=== PATIENT | female | born 1975 | race Caucasian/White ===

== ENCOUNTER 2016-11-25 17:06 | Emergency (ER) | payer MEDICARE, OTHER ==
[2016-11-25] MEDS ORDERED: FAMOTIDINE 20 MG/2 ML VIAL IV STA (17:30)
[2016-11-25] MEDS ORDERED: methylPREDNISolone SOD SUCCI 125 MG/2 ML VIAL IM ONE (17:30)
[2016-11-25] MEDS ORDERED: diphenhydrAMINE 50 MG/ML 1 ML VIAL IVP STA (17:30)
--- NOTE | 2016-11-25 17:40 | ED ---
Allergic Reaction HPI - General Chief complaint: Allergic Reaction Stated complaint: allergic reaction Time Seen by Provider: 11/25/16 17:17 Source: patient, RN notes reviewed Mode of arrival: ambulatory Limitations: no limitations - History of Present Illness Initial Comments: 41-year-old female presented emergency department to make ALLERGIC reaction. Patient states she was eating a local restaurant which she ate some ribs and shrimp. Patient states that few minutes after eating she started feeling funny became very red in her face, upper chest region. She states she's having difficult breathing, swelling to time. She states she is very itchy, her eyes are itchy. Patient states that she stopped at a local gas station did take some Benadryl prior come emergency department. Patient states she has ALLERGIES to penicillin but states that she's never had any issues with food ALLERGIES. Patient denies any medications, soaps also detergents. Patient states that she did not take any also for this reaction this time. - Related Data Home Medications Medication Instructions Recorded Confirmed traZODone HCL 150 mg PO HS PRN 11/25/16 11/25/16 Previous Rx's Medication Instructions Recorded diphenhydrAMINE [Benadryl] 50 mg PO QID PRN #20 capsule 11/25/16 predniSONE 50 mg PO DAILY #3 tab 11/25/16 Allergies Allergy/AdvReac Type Severity Reaction Status Date / Time Penicillins Allergy Rash/Hives Verified 11/25/16 17:51 Review of Systems ROS Statement: Those systems with pertinent positive or pertinent negative responses have been documented in the HPI. ROS Other: All systems not noted in ROS Statement are negative. Past Medical History Additional Past Medical History / Comment(s): back pain History of Any Multi-Drug Resistant Organisms: None Reported Past Surgical History: Back Surgery, Cholecystectomy Additional Past Surgical History / Comment(s): rt ovary removed Past Psychological History: No Psychological Hx Reported Smoking Status: Never smoker Past Alcohol Use History: None Reported Past Drug Use History: None Reported General Exam Limitations: no limitations General appearance: alert, in no apparent distress Head exam: Present: atraumatic, normocephalic, normal inspection Eye exam: Present: PERRL, EOMI, conjunctival injection. Absent: normal appearance, scleral icterus, periorbital swelling ENT exam: Present: normal exam, normal oropharynx, mucous membranes moist, TM's normal bilaterally, normal external ear exam Neck exam: Present: normal inspection, full ROM. Absent: tenderness, meningismus, lymphadenopathy Respiratory exam: Present: normal lung sounds bilaterally. Absent: respiratory distress, wheezes, rales, rhonchi, stridor Cardiovascular Exam: Present: normal rhythm, tachycardia, normal heart sounds. Absent: systolic murmur, diastolic murmur, rubs, gallop, clicks Skin exam: Present: warm, dry, intact, normal color, rash (Erythema noted of the face, upper chest region) Course Vital Signs 11/25/16 11/25/16 17:23 17:35 Temperature 97.7 F Pulse Rate 120 H 107 H Respiratory 20 18 Rate Blood Pressure 157/98 140/76 O2 Sat by Pulse 99 99 Oximetry - Reevaluation(s) Reevaluation #1: 11/25/16 18:01 Patient was reevaluated his time. Patient states her symptoms have almost all resolved other than some blotchy skin. Patient states she has no difficulty breathing or difficulty swallowing. States itching is resolved and her eyes are slightly itchy at this time. Patient is requesting to be discharged. We did discuss that she is to stay on Benadryl every 6 hours for minimal 24 hours. Patient was started on steroids for 3 days. Return parameters were discussed. Medical Decision Making - Medical Decision Making 41-year-old female presented emergency from for ALLERGIC reaction. Patient was given Benadryl, Solu-Medrol Pepcid. Patient's symptoms have resolved. Patient be discharged on Benadryl and prednisone. Return parameters were discussed. Disposition Clinical Impression: Allergic reaction Disposition: HOME SELF-CARE Condition: Stable Instructions: Food Allergy (ED), General Allergic Reaction (ED) Additional Instructions: Please return to the Emergency Department if symptoms worsen or any other concerns. Prescriptions: diphenhydrAMINE [Benadryl] 50 mg PO QID PRN #20 capsule PRN Reason: Allergic Reaction predniSONE 50 mg PO DAILY #3 tab Time of Disposition: 18:04
[2016-11-25] MEDS ORDERED: KETOTIFEN 0.025% OPHTH DROPS 5 ML BTL BOTH EYES STA (18:00)
[2016-11-25 18:16] VITALS: BP 130/87; PULSE 84; RESP 20; TEMP 99.4
== END 2016-11-25 18:19 | disposition home or self-care (01) ==
LOC: EC 17:06
DX: T78.1XXA Other adverse food reactions, not elsewhere classified, initial encounter (principal); Z88.0 Allergy status to penicillin; Z88.2 Allergy status to sulfonamides
CPT/HCPCS: 99282; 96372; 96374; 96375; J1200; J2930

== ENCOUNTER 2016-11-26 18:33 | Inpatient (IN) | payer MEDICARE, OTHER ==
[2016-11-26] MEDS ORDERED: FAMOTIDINE 20 MG/2 ML VIAL IV STA ×2 (18:46→19:28)
[2016-11-26] MEDS ORDERED: EPINEPHrine 1 MG/ML 1 ML AMP IM STA (18:46)
[2016-11-26] MEDS ORDERED: methylPREDNISolone SOD SUCCI 125 MG/2 ML VIAL IV STA ×2 (18:46→21:41)
[2016-11-26] MEDS ORDERED: diphenhydrAMINE 50 MG/ML 1 ML VIAL IVP STA ×3 (18:46→20:49)
--- NOTE | 2016-11-26 19:16 | ED ---
Allergic Reaction HPI - General Source: patient, RN notes reviewed Mode of arrival: ambulatory Limitations: no limitations <Vikram Murphy - Last Filed: 11/26/16 19:14> <Silverio Bruno - Last Filed: 11/26/16 21:52> - General Chief complaint: Allergic Reaction Stated complaint: allergic reaction Time Seen by Provider: 11/26/16 18:41 - History of Present Illness Initial Comments: 41-year-old female presents emergency Department chief complaint ALLERGIC reaction. Patient seen here yesterday for ALLERGIC reaction. She states it started again today after eating dinner. She states that she ate something different had different drink than usual. Patient states that she merely started feeling flushed her face, difficulty breathing difficult the swelling. States she is itchy all over. Patient states she has not been taking the Benadryl every 6 hours as directed. Patient states she knocked steroids either. She states she woke up today and no symptoms associated that she was fine. Patient has known ALLERGY penicillin but states that she has no known food ALLERGIES. (Vikram Murphy) - Related Data Home Medications Medication Instructions Recorded Confirmed traZODone HCL 150 mg PO HS PRN 11/25/16 11/26/16 Previous Rx's Medication Instructions Recorded diphenhydrAMINE [Benadryl] 50 mg PO QID PRN #20 capsule 11/25/16 predniSONE 50 mg PO DAILY #3 tab 11/25/16 Allergies Allergy/AdvReac Type Severity Reaction Status Date / Time Penicillins Allergy Rash/Hives Verified 11/26/16 18:58 Review of Systems ROS Other: All systems not noted in ROS Statement are negative. <Vikram Murphy - Last Filed: 11/26/16 19:14> ROS Other: All systems not noted in ROS Statement are negative. <Silverio Bruno - Last Filed: 11/26/16 21:52> ROS Statement: Those systems with pertinent positive or pertinent negative responses have been documented in the HPI. Past Medical History Additional Past Medical History / Comment(s): back pain History of Any Multi-Drug Resistant Organisms: None Reported Past Surgical History: Back Surgery, Cholecystectomy Additional Past Surgical History / Comment(s): rt ovary removed Past Psychological History: No Psychological Hx Reported Smoking Status: Never smoker Past Alcohol Use History: None Reported Past Drug Use History: None Reported <Vikram Murphy Corby - Last Filed: 11/26/16 19:14> General Exam Limitations: no limitations General appearance: alert, in no apparent distress Head exam: Present: atraumatic, normocephalic, normal inspection Eye exam: Present: normal appearance, PERRL, EOMI. Absent: scleral icterus, conjunctival injection, periorbital swelling ENT exam: Present: normal exam, normal oropharynx, mucous membranes moist, TM's normal bilaterally, normal external ear exam Neck exam: Present: normal inspection, full ROM. Absent: tenderness, meningismus, lymphadenopathy Respiratory exam: Present: normal lung sounds bilaterally. Absent: respiratory distress, wheezes, rales, rhonchi, stridor Cardiovascular Exam: Present: normal rhythm, tachycardia, normal heart sounds. Absent: systolic murmur, diastolic murmur, rubs, gallop, clicks Skin exam: Present: rash (Erythema noted to the face, upper chest and neck region) <Vikram Murphy Corby - Last Filed: 11/26/16 19:14> General appearance: alert, in no apparent distress Head exam: Present: atraumatic, normocephalic, normal inspection Eye exam: Present: normal appearance, PERRL, EOMI. Absent: scleral icterus, conjunctival injection, periorbital swelling ENT exam: Present: normal exam, mucous membranes moist Neck exam: Present: normal inspection. Absent: tenderness, meningismus, lymphadenopathy Respiratory exam: Present: normal lung sounds bilaterally. Absent: respiratory distress, wheezes, rales, rhonchi, stridor Cardiovascular Exam: Present: regular rate, normal rhythm, normal heart sounds. Absent: systolic murmur, diastolic murmur, rubs, gallop, clicks GI/Abdominal exam: Present: soft, normal bowel sounds. Absent: distended, tenderness, guarding, rebound, rigid Extremities exam: Present: normal inspection, full ROM, normal capillary refill. Absent: tenderness, pedal edema, joint swelling, calf tenderness Back exam: Present: normal inspection Neurological exam: Present: alert, oriented X3, CN II-XII intact Psychiatric exam: Present: normal affect, normal mood Skin exam: Present: warm, dry, intact, normal color. Absent: rash <Silverio Bruno B - Last Filed: 11/26/16 21:52> Course <Vikram Murphy - Last Filed: 11/26/16 19:14> <Silverio Bruno - Last Filed: 11/26/16 21:52> Vital Signs 11/26/16 11/26/16 11/26/16 18:37 19:08 20:37 Temperature 97.8 F Pulse Rate 117 H 105 H Respiratory 22 20 18 Rate Blood Pressure 153/87 120/65 O2 Sat by Pulse 100 96 Oximetry - Reevaluation(s) Reevaluation #1: 11/26/16 20:45 patient at this point is showing mild improvement (Silverio Bruno) Reevaluation #2: 11/26/16 21:51 Patient continued to feel worse as far as diffuse itching and rash, (Silverio Bruno) Medical Decision Making <Vikram Murphy - Last Filed: 11/26/16 19:14> - Lab Data Result diagrams: 11/26/16 20:00 11/26/16 20:00 <Silverio Bruno - Last Filed: 11/26/16 21:52> - Medical Decision Making 41 female here for evaluation regarding possible return of ALLERGIC reaction, mild alcohol intoxication with mild alcoholic ketoacidosis, patient given adequate IV fluid here in the emergency room, is able to increase fluid intake. Patient's potassium is low which is replaced and patient is having difficulty with itching, still feeling not well, not tolerating oral intake. Patient be admitted for monitoring of what liquids and fluids. Treatment of pruritus and crack or correction of fluid dehydration status and hypokalemia (Silverio Bruno) - Lab Data Lab Results 11/26/16 11/26/16 Range/Units 20:00 20:00 WBC 18.5 H (3.8-10.6) k/uL RBC 4.24 (3.80-5.40) m/uL Hgb 14.4 (11.4-16.0) gm/dL Hct 41.7 (34.0-46.0) % MCV 98.2 (80.0-100.0) fL MCH 34.0 (25.0-35.0) pg MCHC 34.7 (31.0-37.0) g/dL RDW 12.8 (11.5-15.5) % Plt Count 283 (150-450) k/uL Neutrophils % (Manual) 69.0 % Band Neutrophils % 1.0 % Lymphocytes % (Manual) 22.0 % Monocytes % (Manual) 7.0 % Eosinophils % (Manual) 1.0 % Neutrophils # (Manual) 13.0 H (1.3-7.7) k/uL Lymphocytes # (Manual) 4.1 (1.0-4.8) k/uL Monocytes # (Manual) 1.3 H (0-1.0) k/uL Eosinophils # (Manual) 0.2 (0-0.7) k/uL Nucleated RBCs 0 (0-0) /100 WBC Manual Slide Review Performed Reactive Lymphocytes Present RBC Morphology Normal Sodium 146 H (137-145) mmol/L Potassium 2.7 L* (3.5-5.1) mmol/L Chloride 111 H (98-107) mmol/L Carbon Dioxide 17 L (22-30) mmol/L Anion Gap 18 mmol/L BUN 15 (7-17) mg/dL Creatinine 0.85 (0.52-1.04) mg/dL Est GFR (MDRD) Af Amer >60 (>60 ml/min/1.73 sqM) Est GFR (MDRD) Non-Af >60 (>60 ml/min/1.73 sqM) Glucose 130 H (74-99) mg/dL Calcium 9.4 (8.4-10.2) mg/dL Magnesium 1.9 (1.6-2.3) mg/dL Total Bilirubin 0.6 (0.2-1.3) mg/dL AST 21 (14-36) U/L ALT 46 (9-52) U/L Alkaline Phosphatase 91 (38-126) U/L Total Protein 7.3 (6.3-8.2) g/dL Albumin 4.3 (3.5-5.0) g/dL TSH 1.220 (0.465-4.680) mIU/L Serum Alcohol 51 mg/dL Disposition <Vikram Murphy - Last Filed: 11/26/16 19:14> <Silverio Bruno - Last Filed: 11/26/16 21:52> Clinical Impression: Allergic reaction, Alcoholic ketoacidosis, Hypokalemia, Severe pruritus Disposition: ADMITTED IP TO THIS HOSP Condition: Good Instructions: Hypokalemia (ED) Referrals: Nonstaff,Physician [Primary Care Provider] - 1-2 days
[2016-11-26] MEDS ORDERED: SODIUM CHLORIDE 0.9% 1,000 ML IV ONE ×2 (19:25→21:44)
[2016-11-26] MEDS ORDERED: LORazepam 2 MG/ML SYRINGE IV STA ×4 (19:28→21:41)
[2016-11-26] MEDS ORDERED: hydrOXYzine HCL 25 MG TAB PO STA (19:28)
[2016-11-26] MEDS ORDERED: SODIUM CHLORIDE 0.9% 1,000 ML IV STA ×2 (20:03→20:49)
[2016-11-26] MEDS ORDERED: KETOTIFEN 0.025% OPHTH DROPS 5 ML BTL BOTH EYES STA (20:07)
[2016-11-26 20:20] LABS: ALT 46 U/L (9-52); AST 21 U/L (14-36); Alcohol 51 mg/dL; Alkaline Phosphatase 91 U/L (38-126); Anion Gap 18 mmol/L; Blood Urea Nitrogen 15 mg/dL (7-17); CH 32.9; CHCM 33.7; Calcium 9.4 mg/dL (8.4-10.2); Carbon Dioxide 17 mmol/L (22-30); Chloride 111 mmol/L (98-107); Glucose 130 mg/dL (74-99); HCT 41.7 % (34.0-46.0); HGB 14.4 gm/dL (11.4-16.0); MCHC 34.7 g/dL (31.0-37.0); MCV 98.2 fL (80.0-100.0); Magnesium 1.9 mg/dL (1.6-2.3); Mean Platelet Volume 7.1; Non-African American GFR(MDRD) >60 (>60 ml/min/1.73 sqM); RBC 4.24 m/uL (3.80-5.40); RDW 12.8 % (11.5-15.5); Sodium 146 mmol/L (137-145); Total Bilirubin 0.6 mg/dL (0.2-1.3); Total Protein 7.3 g/dL (6.3-8.2); WBC 18.5 k/uL (3.8-10.6); WBC (Perox) 18.25
[2016-11-26 20:21] LABS: Potassium 2.7 mmol/L (3.5-5.1)
[2016-11-26] MEDS ORDERED: POTASSIUM CHLORIDE ER 20 MEQ TAB.ER PO STA (20:21)
[2016-11-26] MEDS ORDERED: ONDANSETRON 4 MG/2 ML VIAL IVP STA (20:25)
[2016-11-26 20:58] LABS: Add Differential Manual Differential
[2016-11-26 21:00] LABS: Nucleated Red Blood Cells 0 /100 WBC (0-0); Total Cells Counted 100
[2016-11-26 21:01] LABS: Manual Review Performed; Reactive Lymphocytes Present
[2016-11-26 21:02] LABS: RBC Morphology Normal
[2016-11-26] MEDS ORDERED: NALOXONE 0.4 MG/ML 10 ML VIAL IVP STA (21:09)
[2016-11-26] MEDS ORDERED: MORPHINE SULFATE 4 MG/ML SYRINGE IVP STA (21:41)
[2016-11-26] MEDS ORDERED: MORPHINE SULFATE 4 MG/ML SYRINGE IVP PRN (21:41)
[2016-11-26] MEDS ORDERED: LORazepam 2 MG/ML SYRINGE IV PRN ×3 (21:43)
[2016-11-26] MEDS ORDERED: ONDANSETRON 4 MG/2 ML VIAL IVP PRN (21:45)
[2016-11-26] MEDS ORDERED: diphenhydrAMINE 50 MG/ML 1 ML VIAL IVP PRN (21:46)
[2016-11-26] MEDS ORDERED: HYDROmorphone 2 MG/ML 1 ML SYRINGE IVP STA (22:23)
[2016-11-26 23:10] VITALS: RESP 16
[2016-11-26] MEDS: LORazepam 2 MG/ML SYRINGE IV PRN (23:18)
[2016-11-27] MEDS ORDERED: HALOPERIDOL LACTATE 5 MG/ML 1 ML VIAL IM PRN (01:31)
[2016-11-27] MEDS: cloNIDine HCL 0.1 MG TAB PO SCH ×4 (02:12→21:46)
[2016-11-27 02:32] LABS: Appearance,Urine Clear (Clear); Bilirubin,Urine Negative (Negative); Glucose,Urine (UA) Negative (Negative); Ketones,Urine Negative (Negative); Leukocyte Esterase,Urine Negative (Negative); Nitrite,Urine Negative (Negative); PH, Urine 5.5 (5.0-8.0); Protein,Urine Negative (Negative); Specific Gravity,Urine 1.002 (1.001-1.035); UA Billing (MACRO vs. MICRO) CHEM; Urobilinogen,Urine <2.0 mg/dL (<2.0)
[2016-11-27 05:10] LABS: Hepatitis B Surface Ag Index 0.09
[2016-11-27 05:15] LABS: Hepatitis B Core IgM Index 0.09
[2016-11-27] MEDS: methylPREDNISolone SOD SUCCI 125 MG/2 ML VIAL IV SCH ×4 (05:25→18:13)
[2016-11-27 05:39] LABS: Hepatitis C Virus IgG Ab Reactive (Negative)
[2016-11-27] MEDS: FAMOTIDINE 20 MG/2 ML VIAL IV SCH ×2 (09:19→21:36)
[2016-11-27] MEDS: THIAMINE 100 MG/ML 2 ML VIAL IVPB SCH (09:19)
[2016-11-27] MEDS: TRIAMCINOLONE ACET 0.5% CREAM 15 GM TUBE TOPICAL SCH ×2 (11:11→21:37)
[2016-11-27] MEDS ORDERED: diphenhydrAMINE 50 MG CAP PO PRN (11:37)
[2016-11-27 15:51] VITALS: BMI 50.3
--- NOTE | 2016-11-27 18:19 | HP ---
DATE OF ADMISSION: 11/26/2016 CHIEF COMPLAINT: Agitation with acute psychosis and possible allergic reaction. HISTORY OF PRESENT ILLNESS: This is the first known admission for this 41-year-old G2, P2, A0 white female. History is bizarre as she apparently was out to dinner with her when she suddenly started to have difficulty breathing and agitation as well as lethargy. She came to the emergency room now where she was evaluated and it was felt that she should be admitted. She is not having and breathing difficulties or hypotension. Now she is extremely agitated, and somewhat lethargic. She has slurred speech and she is inappropriate. REVIEW OF SYSTEMS: Cannot be reliably obtained. She denies any symptoms. Past medical history, family history, and personal and social histories reveals SHE IS ALLERGIC TO PENICILLIN. She takes: 1. Adderall. 2. Trazodone. Surgically, she has had 3 procedures on the back, nose procedure, breast augmentation, cholecystectomy and was treated for ovarian cancer many years ago. She smokes half pack of cigarettes a day. PHYSICAL EXAMINATION: VITAL SIGNS: Blood pressure 140/98 with a pulse of 100, respirations 38, and she is afebrile. GENERAL: She appeared to be somewhat lethargic, but extremely agitated in the hospital. She is slightly ( ) hospital staff or anyone else around. HEENT: Head, ears, eyes, nose, mouth, and throat were grossly normal. CHEST: Clear. CARDIAC: Normal. ABDOMEN: Soft, nontender. EXTREMITIES: Normal. IMPRESSION: 1. Acute psychosis. 2. ? allergic reaction ( ) substance is unknown. 3. Alcoholism ? 4. Substance abuse ? PLAN: 1. Bed rest. 2. IV fluids. 3. Frequent monitoring of her neurologic status and vital signs. 4. Sedation. 5. Psych consult.
--- NOTE | 2016-11-27 18:21 | PN ---
DATE OF SERVICE: 11/27/2016 CHIEF COMPLAINT: Acute psychosis. HISTORY OF PRESENT ILLNESS: This lady is very agitated and aggressive. She requires a sitter and a guardian. She will be seen by psychiatry. PHYSICAL EXAMINATION: Chest is clear. CARDIAC: Exam is normal. IMPRESSION: Acute psychosis, etiology unknown. PLAN: Await psych consult and attempt to control agitation.
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
[2016-11-27] MEDS: HYDROmorphone 2 MG/ML 1 ML SYRINGE IVP PRN ×2 (21:37)
[2016-11-27] MEDS: LORazepam 2 MG/ML SYRINGE IV PRN (22:45)
[2016-11-28] MEDS: methylPREDNISolone SOD SUCCI 125 MG/2 ML VIAL IV SCH ×2 (00:43→06:28)
[2016-11-28] MEDS: HYDROmorphone 2 MG/ML 1 ML SYRINGE IVP PRN ×3 (01:32→09:25)
[2016-11-28] MEDS: LORazepam 2 MG/ML SYRINGE IV PRN (04:45)
[2016-11-28 08:32] VITALS: BP 110/65; PULSE 90; TEMP 98
[2016-11-28] MEDS ORDERED: NICOTINE 21MG/24HR PATCH TRANSDERM SCH (09:00)
[2016-11-28] MEDS: cloNIDine HCL 0.1 MG TAB PO SCH (09:04)
[2016-11-28] MEDS: TRIAMCINOLONE ACET 0.5% CREAM 15 GM TUBE TOPICAL SCH (09:05)
[2016-11-28] MEDS: THIAMINE 100 MG/ML 2 ML VIAL IVPB SCH (09:11)
[2016-11-28] MEDS: FAMOTIDINE 20 MG/2 ML VIAL IV SCH (09:26)
--- NOTE | 2016-12-17 17:49 | DS ---
DATE OF ADMISSION: 11/26/2016 DATE OF DISCHARGE: 11/28/2016 CHIEF COMPLAINT: Agitation and acute psychosis. HISTORY OF PRESENT ILLNESS AND PHYSICAL EXAMINATION: Details of this lady's history and physical can be found in the initial work-up. LABORATORY STUDIES: While she was in the hospital she had laboratory studies, the details of which can be found in the laboratory section of the chart. COURSE IN THE HOSPITAL: After admission, she was placed on bed rest and started on intravenous fluids and frequent monitoring of her neurologic status and vital signs. She was referred to psychiatry. She stabilized and was doing well and it was felt that he could go home on the twelfth. She will follow up with her own physician. FINAL DIAGNOSES: 1. Agitation. 2. Attention deficit disorder. 3. Attention deficit hyperactivity disorder. 4. Acute psychosis. OPERATIONS: None. CONSULTATIONS: Psychiatry. She is improved.
== END 2016-11-28 12:00 | disposition left against medical advice (07) | DRG 894 ==
LOC: EC 18:33 → 5MS5E 21:44
PROVIDERS: ADMIT Family Medicine; ATTEND Family Medicine
DX: F19.921 Other psychoactive substance use, unspecified with intoxication with delirium (principal); E87.2 Acidosis; E86.0 Dehydration; E87.6 Hypokalemia; F17.210 Nicotine dependence, cigarettes, uncomplicated; L29.9 Pruritus, unspecified; Z88.0 Allergy status to penicillin; Z72.89 Other problems related to lifestyle; Z79.52 Long term (current) use of systemic steroids; Z79.899 Other long term (current) drug therapy
CPT/HCPCS: 36415; 80053; 80074; 80306; 80320; 81003; 83735; 84132; 84443; 85025; 86694; 86695; 86696; 87086; 96361; 96372; 96374; 96375; 96376; 99282; 99285